=== PATIENT | male | born 1960 | race Caucasian/White ===

== ENCOUNTER 2017-01-02 17:01 | Emergency (ER) | payer BC ==
[~2017-01-02] VITALS: Ht 185.4 cm; Wt 115.2 kg
[2017-01-02] MEDS ORDERED: NAPROSYN500 MG PO (18:43)
[2017-01-02] MEDS ORDERED: NORCO 5/3251 TABLET PO (18:43)
[2017-01-02 19:14] VITALS: BP 143/78
== END 2017-01-02 19:16 | disposition home or self-care (01) ==
LOC: EME 17:01
DX: S93.402A Sprain of unspecified ligament of left ankle, initial encounter (principal); X50.9XXA Other and unspecified overexertion or strenuous movements or postures, initial encounter; W19.XXXA Unspecified fall, initial encounter; Y93.01 Activity, walking, marching and hiking
CPT/HCPCS: 73610; 73630; 99281; 99284